=== PATIENT | female | born 1945 | race African-American/Black ===

== ENCOUNTER 2023-09-09 18:12 | Emergency (ER) | payer OTHER ==
[2023-09-09 18:17] VITALS: BP 129/75; PULSE 75; RESP 17; TEMP 97.8; BMI 34.0
[2023-09-09] MEDS ORDERED: LIDOCAINE 5% TOPICAL PATCH TP ONE (18:53)
[2023-09-09] MEDS ORDERED: LIDOCAINE 5% TOPICAL PATCH ONE (19:05)
[2023-09-10] MEDS ORDERED: LIDOCAINE PATCH REMOVAL MC SCH (07:00)
== END 2023-09-09 20:17 | disposition home or self-care (01) ==
LOC: FER 18:12
DX: M54.50 Low back pain, unspecified (principal)
CPT/HCPCS: 81003; 87086; 99283-25